=== PATIENT | female | born 1940 | race Caucasian/White ===

== ENCOUNTER 2023-07-14 18:19 | Emergency (ER) | payer MEDICARE, OTHER, SELFPAY ==
[2023-07-14 18:20] VITALS: BP 219/102; BMI 27.8
[2023-07-14 18:55] VITALS: BP 221/90
[2023-07-14 19:19] LABS: % Basophils 0.6 % (0-2); % Eosinophils 2.6 % (0-6); % Immature Granulocytes 0.3 % (0-0.5); % Lymphocytes 21.7 % (20.5-51.1); % Monocytes 7.9 % (1.7-9.3); % Neutrophils 66.9 % (42.2-75.2); Absolute Eosinophils 0.2 10^3/uL (0-0.7); Absolute Lymphocytes 1.4 10^3/uL (1.2-3.4); Absolute Monocytes 0.5 10^3/uL (0.1-0.6); Absolute Neutrophils 4.4 10^3/uL (1.4-6.5); Hematocrit 40.5 % (37.0-47.0); Hemoglobin 13.6 g/dL (12.0-16.0); Mean Corp Hgb Conc. 33.6 g/dL (33.0-37.0); Mean Corpuscular Hgb 31.1 pg (27.0-31.0); Mean Corpuscular Volume 92.5 fL (81.0-99.0); Mean Platelet Volume 11.2 fL (7.4-10.4); Nucleated Red Blood Cells % 0 %; Platelet Count 196 10^3/uL (130-400); Red Blood Cell Count 4.38 10^6/uL (4.20-5.40); Red Cell Dist. Width 12.1 % (11.5-14.5); White Blood Cell Count 6.6 10^3/uL (4.8-10.8)
[2023-07-14 19:30] LABS: ALT (SGPT) 17 U/L (0-35); AST (SGOT) 27 U/L (14-36); Albumin 3.9 g/dl (3.5-5.0); Alkaline Phosphatase 58 U/L (38-126); Blood Urea Nitrogen 25 mg/dl (7-17); Calcium 9.3 mg/dl (8.4-10.2); Carbon Dioxide 30 mmol/L (22-30); Chloride 103 mmol/L (98-107); Estimated Creatinine Clearance 67 ml/min; Glucose 96 mg/dl (70-99); Potassium 4.1 mmol/L (3.5-5.1); Sodium 135 mmol/L (135-145); Total Bilirubin 0.6 mg/dl (0.2-1.3); Total Protein 6.5 g/dl (6.3-8.2); eGFR > 60.00
[2023-07-14 19:46] VITALS: BP 213/85
--- NOTE | 2023-07-14 19:47 | ED.GENMED ---
History of Present Illness
General
Chief Complaint: Blood Pressure Problem
Time Seen by Provider: 07/14/23 18:54
Travel History
Have you had any contact with someone who has COVID-19?: No
Do you have any symptoms of coronavirus? Fever > 100 degrees, chills, cough, shortness of breath, sore throat, loss of taste or smell, muscle aches, or headache?: No
History of Present Illness
History of Present Illness:
82-year-old female with history of hypothyroidism presents the emergency department for evaluation of elevated blood pressure readings for the past week. She reports headache and lightheadedness ongoing for the past week as well. She has no
history of hypertension. Notes that she has been very stressed and anxious lately. Denies any chest pain or shortness of breath currently. Has not seen her primary care physician for this.
Past History
Past History
ED Past Medical History: None
ED Past Surgical History: None
Social History
Tobacco: Non-smoker
Alcohol: Occasional
Drug: None
Review of Systems
Review of Systems
Allergies reviewed?: Yes
All Other Systems: ROS reviewed and negative except as documented in HPI and ROS
Phy Exam
Physical Exam
Physical Exam:
GEN: Well appearing, NAD, WDWN
HEENT: Oral mucosa moist, no scleral icterus
Cardiac: Regular rate and rhythm, no murmurs
Lung: No respiratory distress, no tachypnea, lungs clear to auscultation bilaterally
MSK: No gross deformity or injuries
Skin: Good color, no pallor or jaundice, no rashes
Neuro: AO x3, moves all extremities freely, bilateral upper and lower extremity strength and sensation is intact all gan and symmetric
Psych: Calm, cooperative
Course
Orders/Labs/Results
Orders:
Orders
07/14/23 19:01
Electrocardiogram (*1) Urgent
Reason for Study: Chest Pain
EKG- Treatment ONCE
07/14/23 19:02
Complete Blood Count/With Diff Urgent
Comprehensive Metabolic Panel Urgent
07/14/23 19:48
NIFEdipine EXTENDED RELEASE [Procardia Xl (Extended Release)] 30 mg PO NOW STA
Abnormal Lab Results
07/14/23
19:02
MCH 31.1 H pg
(27.0-31.0)
MPV 11.2 H fL
(7.4-10.4)
BUN 25 H mg/dl
(7-17)
07/14/23 19:02
07/14/23 19:02
Vital Signs
Initial and Last Documented VS:
Initial Vital Signs
Temp Pulse Resp BP Pulse Ox
98 F 66 16 219/102 97
07/14/23 18:20 07/14/23 18:20 07/14/23 18:20 07/14/23 18:20 07/14/23 18:20
Last Documented Vital Signs
Temp Pulse Resp BP Pulse Ox
98 F 59 13 213/85 99
07/14/23 18:20 07/14/23 19:46 07/14/23 19:46 07/14/23 19:46 07/14/23 19:46
MDM/Problems Addressed
MDM/Problems Addressed:
7-year-old female presenting with severe hypertension. I do suspect some of this is anxiety and stress related given that it is isolated systolic hypertension. Nevertheless due to her advanced age she would be appropriate to start on
antihypertensives. Labs are reassuring. No clinical evidence of endorgan damage. As she is mildly bradycardic at baseline will avoid beta-blockers, will start the patient on extended release nifedipine. Encourage close primary care follow-up.
Comment
Comment:
EKG independently turbid by me shows a sinus bradycardia at a rate of [address] changes concerning for ischemia
*Critical Care Note
Total Time (30-74mins, 75-104mins- exclusive of procedures): Not Applicable
ED Attending Note
-
Portions of this chart may have been created with voice recognition software.� Occasional wrong word or��sound alike� substitutions may have occurred due to the inherent limitations of voice recognition software.
Discharge Plan
Departure
Patient Disposition: Home (Routine Discharge)
Date of Disposition: 07/14/23
Time of Disposition: 19:48
Patient with high blood pressure during this ER visit?: No
Discharge Problem:
Hypertension, uncontrolled
Instructions: High Blood Pressure (DC)
Prescriptions:
New
nifedipine 30 mg tablet extended release
30 mg PO DAILY Qty: 30 0RF
No Action
levothyroxine 100 MCG tablet
100 mcg PO DAILY AT 0700
vitamin B complex 1 TAB tablet
1 tab PO DAILY
estradiol [Estrace] 0.5 MG tablet
0.5 mg PO .M,W,F
cinnamon bark [Cinnamon] 500 MG capsule
500 mg PO DAILY
multivitamin with folic acid [Tab-A-Shane] 1 TABLET tablet
1 tab PO DAILY
B-12
1,000 mcg PO DAILY
calcium 500 mg Tablet
1,000 mg PO DAILY
aspirin 81 mg Tablet,Chewable
81 mg PO HS
Vitamin C Plus Zinc 200-100 mg Tablet
1 tab PO DAILY
coenzyme Q10 [CoQ-10] 100 mg Capsule
100 mg PO DAILY
yyxqziohidn-ftbmrwqan-fdz C-Mn [Glucosamine 1500 Complex] 500-400 mg Capsule
1 cap PO BID
mkctlbpn-aprq-rgnok-oreg-capry 100 mg-150 mg- 50 mg-150 mg Capsule
1 cap PO DAILY
Referrals:
Elmer Otero MD [Family Provider] -
Interventions
Interventions:
*Risk Screen - Suicide Last Done: 07/14/23 18:20
*General Assessment Last Done: 07/14/23 18:54
*Neglect/Abuse Screening Last Done: 07/14/23 18:20
ED- Fall Risk Assessment Last Done: 07/14/23 18:54
*ED COVID-19 Vaccine History Last Done: 07/14/23 18:20
*Nursing Disposition Last Done: 07/14/23 19:56
ED- Cardiac Assessment Last Done: 07/14/23 18:54
ED- Neurological Assessment Last Done: 07/14/23 18:54
ED- Pulmonary Assessment Last Done: 07/14/23 18:54
Discharge Date and Time
Discharge Date/Time: 07/14/23 19:56
[2023-07-14] MEDS: PROCARDIA XL (EXTENDED RELEASE) 30 MG PO (19:50)
== END 2023-07-14 19:56 | disposition home or self-care (01) ==
LOC: EMR 18:19
PROVIDERS: Physician Assistant; EMERGENCY PHYSICIAN Student in an Organized Health Care Education/Training Program; FAMILY PHYSICIAN Internal Medicine
DX: I10 Essential (primary) hypertension (principal)
CPT/HCPCS: 99284; 80053; 85025; 93005

== ENCOUNTER → 2023-08-06 11:00 | Outpatient (REF) | payer MEDICARE, OTHER, SELFPAY ==
[2023-08-06 15:49] LABS: Free T4 1.58 ng/dl (0.78-2.19)
== END ==
LOC: HWRAD 11:00
PROVIDERS: ATTENDING PHYSICIAN Internal Medicine
DX: I10 Essential (primary) hypertension (principal); E03.9 Hypothyroidism, unspecified; E04.1 Nontoxic single thyroid nodule
CPT/HCPCS: 36415; 76536; 84439; 84443

== ENCOUNTER → 2023-11-05 12:38 | Outpatient (REF) | payer MEDICARE, OTHER, SELFPAY | LOC: WDC 12:38 | PROVIDERS: ATTENDING PHYSICIAN Obstetrics & Gynecology; FAMILY PHYSICIAN Internal Medicine | DX: Z12.31 Encounter for screening mammogram for malignant neoplasm of breast (principal) | CPT/HCPCS: 77063; 77067 ==

== ENCOUNTER → 2024-02-03 12:16 | Outpatient (REF) | payer MEDICARE, OTHER, SELFPAY ==
[2024-02-03 12:56] LABS: % Basophils 0.4 % (0-2); % Eosinophils 3.4 % (0-6); % Immature Granulocytes 0.3 % (0-0.5); % Lymphocytes 23.5 % (20.5-51.1); % Neutrophils 63.4 % (42.2-75.2); Absolute Eosinophils 0.2 10^3/uL (0-0.7); Absolute Lymphocytes 1.7 10^3/uL (1.2-3.4); Absolute Monocytes 0.6 10^3/uL (0.1-0.6); Absolute Neutrophils 4.5 10^3/uL (1.4-6.5); Hematocrit 43.2 % (37.0-47.0); Hemoglobin 14.5 g/dL (12.0-16.0); Mean Corp Hgb Conc. 33.6 g/dL (33.0-37.0); Mean Corpuscular Hgb 31.5 pg (27.0-31.0); Mean Corpuscular Volume 93.7 fL (81.0-99.0); Mean Platelet Volume 11.1 fL (7.4-10.4); Nucleated Red Blood Cells % 0 %; Platelet Count 204 10^3/uL (130-400); Red Blood Cell Count 4.61 10^6/uL (4.20-5.40); White Blood Cell Count 7.1 10^3/uL (4.8-10.8)
[2024-02-03 13:27] LABS: Urine Albumin Negative (Neg - Trace); Urine Bilirubin Negative (Negative); Urine Character Clear (Clear); Urine Color Yellow; Urine Glucose Negative (Negative); Urine Ketone Negative (Negative); Urine Leukocyte Trace (Negative); Urine Nitrite Negative (Negative); Urine Occult Blood Negative (Negative); Urine Urobilinogen Negative (Neg - 1+)
[2024-02-03 13:40] LABS: ALT (SGPT) 17 U/L (0-35); AST (SGOT) 25 U/L (14-36); Albumin 4.2 g/dl (3.5-5.0); Alkaline Phosphatase 58 U/L (38-126); Blood Urea Nitrogen 23 mg/dl (7-17); Calcium 9.5 mg/dl (8.4-10.2); Carbon Dioxide 33 mmol/L (22-30); Chloride 99 mmol/L (98-107); Glucose 91 mg/dl (70-99); HDL Cholesterol 67 mg/dl; LDL Cholesterol, Calculated 132 mg/dl; Potassium 4.4 mmol/L (3.5-5.1); Sodium 139 mmol/L (135-145); Total Bilirubin 0.7 mg/dl (0.2-1.3); Total Cholesterol 214 mg/dl (50-199); Total Protein 6.7 g/dl (6.3-8.2); Triglyceride 76 mg/dl (10-149); Very Low Density Lipoprotein 15 mg/dl (0-30); eGFR > 60.00
[2024-02-03 14:09] LABS: TSH 2.68 uIU/ml (0.47-4.68)
[2024-02-03 17:15] LABS: Urine White Cell 0-2 /HPF (0-5)
== END ==
LOC: REG 12:16
PROVIDERS: ATTENDING PHYSICIAN Internal Medicine; OTHER PHYSICIAN Internal Medicine Cardiovascular Disease; REFERRING PHYSICIAN Obstetrics & Gynecology
DX: E03.9 Hypothyroidism, unspecified (principal); K21.9 Gastro-esophageal reflux disease without esophagitis; Z00.00 Encounter for general adult medical examination without abnormal findings; M19.90 Unspecified osteoarthritis, unspecified site
CPT/HCPCS: 36415; 80053; 80061; 81003; 81015; 84443; 85025

== ENCOUNTER → 2024-11-05 12:18 | Outpatient (REF) | payer MEDICARE, OTHER, SELFPAY | LOC: WDC 12:18 | PROVIDERS: ATTENDING PHYSICIAN Obstetrics & Gynecology; FAMILY PHYSICIAN Internal Medicine | DX: Z12.31 Encounter for screening mammogram for malignant neoplasm of breast (principal) | CPT/HCPCS: 77063; 77067 ==

== ENCOUNTER → 2025-03-23 13:05 | Outpatient (REF) | payer MEDICARE, OTHER, SELFPAY | LOC: HWRAD 13:05 | PROVIDERS: ATTENDING PHYSICIAN Obstetrics & Gynecology; FAMILY PHYSICIAN Internal Medicine | DX: Z78.0 Asymptomatic menopausal state (principal) | CPT/HCPCS: 77080 ==